=== PATIENT | male | born 1995 | race Caucasian/White ===

== ENCOUNTER 2016-06-11 12:09 | Emergency (ER) | payer BC ==
[2016-06-11 13:24] VITALS: BP 132/61
--- NOTE | 2016-06-11 14:20 | UC ---
Complaint Male HPI - HPI Summary HPI Summary: complaint of feeling a bump in his left testicle noticed it yesterday denies any pain, swelling, trauma to genitals denies dysuria, penile lesions or discharge denies fever no pain in testicles unles he squeezes lump. - History of Current Complaint Chief Complaint: UCGU Stated Complaint: PERSONAL Time Seen by Provider: 06/11/16 14:13 Hx Obtained From: Patient - Allergies/Home Medications Allergies/Adverse Reactions: Allergies Allergy/AdvReac Type Severity Reaction Status Date / Time No Known Allergies Allergy Verified 06/11/16 13:19 PMH/Surg Hx/FS Hx/Imm Hx Previously Healthy: Yes Endocrine History Of: Denies: Diabetes, Thyroid Disease, Hyperthyroidism, Hypothyroidism, Dyslipidemia Cardiovascular History Of: Denies: Cardiac Disorders, Hypertension, Pacemaker/ICD, Myocardial Infarction , Congestive Heart Failure, Atrial Fibrillation, Deep Vein Thrombosis, Bleeding Disorders Respiratory History Of: Denies: COPD, Asthma, Bronchitis, Pneumonia, Pulmonary Embolism GI/ History Of: Denies: Gastroesophageal Reflux, Ulcer, Gastrointestinal Bleed, Gall Bladder Disease, Kidney Stones, Diverticulitis, Renal Disease, Urosepsis Neurological History Of: Denies: TIA, CVA, Dementia, Seizures, Migraine Psychological History Of: Denies: Anxiety, Depression, Bipolar Disorder, Schizophrenia, Post Traumatic Stress Disorder Cancer History Of: Denies: Lung Cancer, Colorectal Cancer, Breast Cancer, Prostate Cancer, Cervical Cancer Other History Of: Negative For: HIV, Hepatitis B, Hepatitis C, Anticoagulant Therapy - Surgical History Surgical History: None - Family History Known Family History: Positive: Hypertension, Other Negative: Cardiac Disease, Diabetes - Social History Occupation: Student Alcohol Use: Occasionally Alcohol Amount: 10-20 beers Substance Use Type: None Substance Use Comment - Amount & Last Used: daily, last used 03/05/16 Smoking Status (MU): Never Smoked Tobacco - Immunization History Most Recent Influenza Vaccination: Not the 2016/2016 Season Review of Systems Constitutional: Negative Skin: Negative Eyes: Negative ENT: Negative Respiratory: Negative Cardiovascular: Negative Gastrointestinal: Negative Genitourinary: Other - lump in left testicle Motor: Negative Neurovascular: Negative Musculoskeletal: Negative Neurological: Negative Psychological: Negative All Other Systems Reviewed And Are Negative: Yes Physical Exam Triage Information Reviewed: Yes Appearance: No Pain Distress, Well-Nourished Vital Signs: Initial Vital Signs Temp 98.5 F 06/11/16 13:18 Pulse 54 06/11/16 13:18 Resp 16 06/11/16 13:18 BP 132/61 06/11/16 13:18 Pulse Ox 100 06/11/16 13:18 Vital Signs Reviewed: Yes Eyes: Positive: Conjunctiva Clear ENT: Positive: Pharynx normal, TMs normal. Negative: Nasal congestion Neck: Positive: No Lymphadenopathy Respiratory: Positive: Lungs clear, Normal breath sounds, No respiratory distress Cardiovascular: Positive: RRR, No Murmur Abdomen Description: Positive: Nontender, Soft Bowel Sounds: Positive: Present Musculoskeletal: Positive: No Edema Neurological: Positive: Alert Psychological Exam: Normal Skin Exam: Normal Skin: Positive: Other - exam- testicles- left testicle 1x2cm lump moveable in left testicle no hernias , no penile lesions, discharge no pain with examination Complaint Male Course/Dx - Course Course Of Treatment: exam completed. no emergent need for ultraosund d/t no pain. will refer to urology for further evaluation and treatment with instructions to go to ED if he gins to have any pain - Differential Dx/Diagnosis Differential Diagnosis/HQI/PQRI: Testicular Torsion, Other - testicular cancer inguinal hernia Provider Diagnoses: left testicluar lump Discharge - Discharge Plan Condition: Stable Disposition: HOME Patient Education Materials: Testicle Pain (ED) Referrals: No Primary Care Phys,NOPCP [Primary Care Provider] - Herson Zepeda MD [Medical Doctor] - Additional Instructions: please call urologist for further evaluation of your testicle if you have any testicular pain, fever difficulty urinating that increases you should go to the emergency room immediately
== END 2016-06-11 14:43 | disposition home or self-care (01) ==
LOC: UCCORT 12:09
DX: N50.9 Disorder of male genital organs, unspecified (principal)
CPT/HCPCS: 99211; G0463

== ENCOUNTER 2016-12-26 15:53 | Emergency (ER) | payer BC ==
[2016-12-26 16:13] VITALS: BP 117/90
[2016-12-26] MEDS ORDERED: Azithromycin TAB* 250 MG PO ONE (16:38)
[2016-12-26] MEDS ORDERED: cefTRIAXone VIAL(*) 250 MG VIAL IM ONE (16:40)
[2016-12-26] MEDS ORDERED: Lidocaine 1% MPF* 2 ML VIAL ONE (16:50)
--- NOTE | 2016-12-26 16:54 | UC ---
Complaint Male HPI - HPI Summary HPI Summary: pt presents with known exposure to chlamydia. pt requesting treatment and does not want any testing. Pt has prior history of chlamydia. - History of Current Complaint Chief Complaint: UCLowerExtremity Stated Complaint: RIGHT LEG PAIN Time Seen by Provider: 12/26/16 16:30 Hx Obtained From: Patient Severity Currently: None Associated Signs And Symptoms: Positive: Negative Prior STD Hx: chlamydia - Allergies/Home Medications Allergies/Adverse Reactions: Allergies Allergy/AdvReac Type Severity Reaction Status Date / Time No Known Allergies Allergy Verified 12/26/16 16:06 PMH/Surg Hx/FS Hx/Imm Hx Previously Healthy: Yes Other History Of: Negative For: HIV, Hepatitis B, Hepatitis C, Anticoagulant Therapy - Surgical History Surgical History: None - Family History Known Family History: Positive: Hypertension, Other Negative: Cardiac Disease, Diabetes - Social History Occupation: Unemployed Lives: With Family Alcohol Use: Weekly Alcohol Amount: 10 drinks per week Substance Use Type: None Substance Use Comment - Amount & Last Used: daily, last used 03/05/16 Smoking Status (MU): Never Smoked Tobacco Have You Smoked in the Last Year: No - Immunization History Most Recent Influenza Vaccination: NONE 2015 Most Recent Tetanus Shot: UTD Review of Systems Constitutional: Negative Skin: Negative Eyes: Negative ENT: Negative Respiratory: Negative Cardiovascular: Negative Gastrointestinal: Negative Genitourinary: Negative Motor: Negative Neurovascular: Negative Musculoskeletal: Negative Neurological: Negative Psychological: Negative All Other Systems Reviewed And Are Negative: Yes Physical Exam Triage Information Reviewed: Yes Appearance: Well-Appearing Vital Signs: Initial Vital Signs Temp 97.8 F 12/26/16 16:06 Pulse 72 12/26/16 16:06 Resp 16 12/26/16 16:06 BP 117/90 12/26/16 16:06 Pulse Ox 97 12/26/16 16:06 Vital Signs Reviewed: Yes Eye Exam: Normal ENT Exam: Normal Neck exam: Normal Respiratory: Positive: No respiratory distress Abdominal Exam: Other Abdomen Description: Positive: Nontender Musculoskeletal Exam: Normal Neurological Exam: Normal Psychological Exam: Normal Skin Exam: Normal Complaint Male Course/Dx - Differential Dx/Diagnosis Differential Diagnosis/HQI/PQRI: Other - confirmed STD exposure, chlamydia Provider Diagnoses: known STD exposure,. STD treatment Discharge - Discharge Plan Condition: Stable Disposition: HOME Patient Education Materials: Sexually Transmitted Diseases (ED), Safe Sex (ED) Referrals: No Primary Care Phys,NOPCP [Primary Care Provider] - If Needed
== END 2016-12-26 17:28 | disposition home or self-care (01) ==
LOC: UCCORT 15:53
DX: Z20.2 Contact with and (suspected) exposure to infections with a predominantly sexual mode of transmission (principal)
CPT/HCPCS: 96372; 99212; A9270-GY; G0463; J0696

== ENCOUNTER 2017-01-21 11:44 | Emergency (ER) | payer BC ==
--- NOTE | 2017-01-21 11:54 | UC ---
Complaint Male HPI - HPI Summary HPI Summary: 21 YEAR OLD MALE PRESENTS WITH ABDOMINAL PAIN AND 13 POUND WEIGHT GAIN. I AM VERY CONCERNED ABOUT FECAL IMPACTION AND WILL SEND HIM TO THE ED. - History of Current Complaint Stated Complaint: ABD/PELVIC PAIN 4 DAYS Time Seen by Provider: 01/21/17 11:53 Hx Obtained From: Patient Onset/Duration: Sudden Onset Timing: Constant Severity Initially: Moderate Severity Currently: Moderate Pain Scale Used: 0-10 Numeric - 5 Location: None Character: Sharp, Constant Pressure Associated Signs And Symptoms: Positive: Negative - Allergies/Home Medications Allergies/Adverse Reactions: Allergies Allergy/AdvReac Type Severity Reaction Status Date / Time No Known Allergies Allergy Verified 01/21/17 11:48 PMH/Surg Hx/FS Hx/Imm Hx Previously Healthy: Yes Other History Of: Negative For: HIV, Hepatitis B, Hepatitis C, Anticoagulant Therapy - Surgical History Surgical History: None - Family History Known Family History: Positive: Hypertension, Other Negative: Cardiac Disease, Diabetes - Social History Alcohol Use: Weekly Alcohol Amount: 10 drinks per week Substance Use Type: None Substance Use Comment - Amount & Last Used: daily, last used 03/05/16 Smoking Status (MU): Never Smoked Tobacco Have You Smoked in the Last Year: No - Immunization History Most Recent Influenza Vaccination: NONE 2015 Most Recent Tetanus Shot: UTD Review of Systems Constitutional: Negative Skin: Negative Eyes: Negative ENT: Negative Respiratory: Negative Cardiovascular: Negative Gastrointestinal: Abdominal Pain Genitourinary: Negative Motor: Negative Neurovascular: Negative Musculoskeletal: Negative Neurological: Negative Psychological: Negative All Other Systems Reviewed And Are Negative: Yes Physical Exam Triage Information Reviewed: Yes Vital Signs Reviewed: Yes Eye Exam: Normal ENT Exam: Normal Dental Exam: Normal Neck exam: Normal Neck: Positive: 1 Respiratory Exam: Normal Cardiovascular Exam: Normal Abdomen Description: Positive: Distended Musculoskeletal Exam: Normal Neurological Exam: Normal Psychological Exam: Normal Skin Exam: Normal Complaint Male Course/Dx - Differential Dx/Diagnosis Provider Diagnoses: CONSTIPATION Discharge - Discharge Plan Condition: Stable Disposition: HOME Patient Education Materials: Constipation (ED) Referrals: No Primary Care Phys,NOPCP [Primary Care Provider] - Additional Instructions: PLEASE GO TO ER FOR SEVERE FECAL IMPACTION.
[2017-01-21 11:55] VITALS: BP 124/67
== END 2017-01-21 12:16 | disposition home or self-care (01) ==
LOC: UCCORT 11:44
DX: K59.00 Constipation, unspecified (principal)
CPT/HCPCS: 99211; G0463

== ENCOUNTER 2017-01-21 13:09 | Emergency (ER) | payer BC ==
--- NOTE | 2017-01-21 17:29 | RAD ---
Indication: Abdominal pain. Flat and upright views of the abdomen demonstrates no free air. Stool is noted throughout the colon. Air distended small bowel is noted in the nonspecific pattern in the left upper quadrant. IMPRESSION: Nonspecific bowel gas pattern without evidence of obstruction.
[2017-01-21 18:59] LABS: Hematocrit 43 % (42-52); Hemoglobin 14.5 g/dl (14.0-18.0); Mean Corpuscular HGB Conc 34 g/dl (31-36); Mean Corpuscular Hemoglobin 30 pg (27-31); Mean Corpuscular Volume 88 fL (80-94); Mean Platelet Volume 9 um3 (7.4-10.4); Red Blood Count 4.85 10^6/ul (4.0-5.4); Red Cell Distribution Width 14 % (10.5-15); White Blood Count 6.8 10^3/ul (3.5-10.8)
--- NOTE | 2017-01-21 19:05 | ED ---
Yasmany Condon Benjamin, scribed for Kevin Joseph MD on 01/21/17 at 1620 . GI/ HPI - HPI Summary HPI Summary: 21 y/o male presents to ED c/o 1 episode of diarrhea six days ago. Since then the pt has had small bowel movements but has been otherwise constipated. He states it is harder to push when he tries to move his bowels. Associated sx: intermittent cramps in the suprapubic region and the bilateral flanks. Pt also c /o testicular pain aggravated by sitting and laying down for the past few months. Pt returned from the [facility] one week ago. Pt gained 13 lbs in the past week. - History of Current Complaint Chief Complaint: EDGeneral Time Seen by Provider: 01/21/17 16:09 Stated Complaint: ABD BLOATING/CONSTIPATION Hx Obtained From: Patient Onset/Duration: Started Days Ago Timing: Intermittent Pain Intensity: 0 Additional Locations for Males: Testicles Associated Signs and Symptoms: Positive: Constipation, Diarrhea, Abdominal Pain - Cramps radiating into the flanks, Other: - Weight gain - Allergy/Home Medications Allergies/Adverse Reactions: Allergies Allergy/AdvReac Type Severity Reaction Status Date / Time No Known Allergies Allergy Verified 01/21/17 11:48 PMH/Surg Hx/FS Hx/Imm Hx Previously Healthy: No Endocrine/Hematology History: Denies: Hx Anticoagulant Therapy, Hx Diabetes, Hx Thyroid Disease Cardiovascular History: Denies: Hx Congestive Heart Failure, Hx Deep Vein Thrombosis, Hx Hypertension , Hx Myocardial Infarction, Hx Pacemaker/ICD Respiratory History: Denies: Hx Asthma, Hx Chronic Obstructive Pulmonary Disease (COPD), Hx Lung Cancer, Hx Pneumonia, Hx Pulmonary Embolism GI History: Denies: Hx Gall Bladder Disease, Hx Gastrointestinal Bleed, Hx Ulcer, Hx Urosepsis History: Denies: Hx Kidney Stones, Hx Renal Disease Neurological History: Denies: Hx Dementia, Hx Migraine, Hx Seizures, Hx Transient Ischemic Attacks (TIA) Psychiatric History: Denies: Hx Anxiety, Hx Depression, Hx Schizophrenia, Hx Bipolar Disorder Infectious Disease History: No Infectious Disease History: Denies: Hx Clostridium Difficile, Hx Hepatitis, Hx Human Immunodeficiency Virus (HIV), Hx of Known/Suspected MRSA, Hx Shingles, Hx Tuberculosis, Hx Known/ Suspected VRE, Hx Known/Suspected VRSA, History Other Infectious Disease, Traveled Outside the [place] in Last 30 Days - Family History Known Family History: Positive: Hypertension, Other Negative: Cardiac Disease, Diabetes - Social History Alcohol Use: Weekly Alcohol Amount: 10 drinks per week Hx Substance Use: No Substance Use Type: Reports: None Substance Use Comment - Amount & Last Used: daily, last used 03/05/16 Hx Tobacco Use: No Smoking Status (MU): Never Smoked Tobacco Have You Smoked in the Last Year: No Review of Systems Constitutional: Negative Eyes: Negative ENT: Negative Cardiovascular: Negative Respiratory: Negative Positive: Abdominal Pain, Diarrhea, Other - Constipation. Weight gain - 13 lbs in the past week Genitourinary: Other - Testicular pain Musculoskeletal: Negative Skin: Negative Neurological: Negative Psychological: Normal All Other Systems Reviewed And Are Negative: Yes Physical Exam Triage Information Reviewed: Yes Vital Signs On Initial Exam: Initial Vitals Temp Pulse Resp BP Pulse Ox 98.1 F 57 20 131/55 100 01/21/17 13:46 01/21/17 13:46 01/21/17 13:46 01/21/17 13:46 01/21/17 13:46 Vital Signs Reviewed: Yes Appearance: Positive: Well-Appearing, No Pain Distress Skin: Positive: Warm, Skin Color Reflects Adequate Perfusion, Dry Head/Face: Positive: Normal Head/Face Inspection Eyes: Positive: Normal ENT: Positive: Normal ENT inspection Neck: Positive: Supple, Nontender Respiratory/Lung Sounds: Positive: Clear to Auscultation, Breath Sounds Present Cardiovascular: Positive: RRR Abdomen Description: Positive: Nontender, Soft Bowel Sounds: Positive: Present Musculoskeletal: Positive: Normal Neurological: Positive: Normal Psychiatric: Positive: Normal - Alyce Coma Scale Coma Scale Total: 15 Diagnostics - Vital Signs Vital Signs Temp Pulse Resp BP Pulse Ox 01/21/17 16:08 59 99 01/21/17 16:07 128/65 01/21/17 16:03 98.7 F 50 16 128/65 100 01/21/17 13:46 98.1 F 57 20 131/55 100 - Laboratory Lab Results: Lab Results 01/21/17 Range/Units 18:40 WBC 6.8 (3.5-10.8) 10^3/ul RBC 4.85 (4.0-5.4) 10^6/ul Hgb 14.5 (14.0-18.0) g/dl Hct 43 (42-52) % MCV 88 (80-94) fL MCH 30 (27-31) pg MCHC 34 (31-36) g/dl RDW 14 (10.5-15) % Plt Count 197 (150-450) 10^3/ul MPV 9 (7.4-10.4) um3 Neut % (Auto) 66.9 (38-83) % Lymph % (Auto) 24.7 L (25-47) % [place] % (Auto) 6.6 (1-9) % Eos % (Auto) 1.2 (0-6) % Baso % (Auto) 0.6 (0-2) % Absolute Neuts (auto) 4.6 (1.5-7.7) 10^3/ul Absolute Lymphs (auto) 1.7 (1.0-4.8) 10^3/ul Absolute Monos (auto) 0.4 (0-0.8) 10^3/ul Absolute Eos (auto) 0.1 (0-0.6) 10^3/ul Absolute Basos (auto) 0 (0-0.2) 10^3/ul Absolute Nucleated RBC 0 10^3/ul Nucleated RBC % 0 Result Diagrams: 01/21/17 18:40 Lab Statement: Any lab studies that have been ordered have been reviewed, and results considered in the medical decision making process. - Radiology ABD XR Xray Interpretation: No Acute Changes - Nonspecific bowel gas pattern without evidence of obstruction. ED PHYSICIAN AGREEABLE Radiology Interpretation Completed By: Radiologist Re-Evaluation - Re-Evaluation 1 Re-Evaluation Time: 17:33 Comment: Discussed ABD XR results GIGU Course/Dx - Course Course Of Treatment: Mr. Sanchez has been C/O low abdominal pain for a week or so and an unexplained weight gain. He thought he was constipated but a KUB is relatively unremarkable. He is getting labs and CT. Assessment/Plan: SIGN OUT TO DR. KEENE AT SHIFT CHANGE. PENDING CT RESULTS - Diagnoses Provider Diagnoses: Abdominal pain Discharge - Discharge Plan Condition: Stable Disposition: OTHER Discharge Disposition Comment: SIGN OUT TO DR. KEENE AT SHIFT CHANGE. PENDING CT RESULTS Referrals: No Primary Care Phys,NOPCP [Primary Care Provider] - The documentation as recorded by the Yasmany centeno Benjamin accurately reflects the service I personally performed and the decisions made by , Kevin Joseph MD.
[2017-01-21 19:09] LABS: ALT 18 U/L (7-52); AST 12 U/L (13-39); Albumin 4.5 g/dL (3.2-5.2); Alkaline Phosphatase 54 U/L (34-104); Blood Urea Nitrogen 12 mg/dL (6-24); C Reactive Protein < 1.00 mg/L (< 5.00); CO2 Carbon Dioxide 28 mmol/L (22-32); Calcium 9.5 mg/dL (8.6-10.3); Chloride 106 mmol/L (101-111); EGFR African American 141.7 (>60); EGFR Non-African American 110.2 (>60); Globulin 2.2 g/dL (2-4); Glucose 99 mg/dL (70-100); Lipase 18 U/L (11.0-82.0); Sodium 134 mmol/L (133-145); Total Protein 6.7 g/dL (6.4-8.9)
[2017-01-21] MEDS ORDERED: Iohexol 300* (CONTRAST) 10 ML SDV IV ONE (19:13)
--- NOTE | 2017-01-21 20:30 | RAD ---
Indication: Lower abdominal pain. Contrast: Administered 127.1 ml of OMNIPAQUE 300 mg/ml CT of the abdomen and pelvis was performed after oral and IV contrast administration. Coronal and sagittal reconstructed images were obtained. Lung bases demonstrate no pleural fluid, nodules or masses. Heart is of normal size without evidence of pericardial effusion. Liver is normal in size. No focal lesions or intrahepatic ductal dilatation is noted. The gallbladder demonstrates no calcified gallstones. No pericholecystic fluid or wall thickening is noted. The common duct is not dilated. The pancreas demonstrates no mass or pancreatic duct dilatation. The spleen is normal in size. No adrenal masses are noted. The kidneys demonstrate symmetric nephrograms without focal lesions. No retroperitoneal adenopathy is noted. No dilated loops of bowel are noted. No retroperitoneal lymphadenopathy is noted. Aorta and inferior vena cava are unremarkable. CT of the pelvis demonstrates no dilated small bowel. The urinary bladder is unremarkable. The colon is filled with contrast. No hernias are noted. No free fluid is identified. No hernias are noted. IMPRESSION: No abnormal masses or fluid collections are noted. There is likely hepatic steatosis. No obstructive uropathy is noted.
[2017-01-21 20:38] LABS: Urine Bilirubin Negative (Negative); Urine Glucose Negative (Negative); Urine Nitrite Negative (Negative)
--- NOTE | 2017-01-21 21:17 | ED ---
Luis Armando Condon Rebecca, scribed for Deon Cordova on 01/21/17 at 2057 . Progress - Progress Note Progress Note: Pt was signed out from Dr. Joseph at 1900, pending disposition, awaiting CT Abd/ Pel results. - Results/Orders Results/Orders: CT Abd/Pel as read by radiologist reveals: No abnormal masses or fluid collections are noted. There is likely hepatic steatosis. No obstructive uropathy is noted. ED physician reviewed this radiology report and agrees. Re-Evaluation - Re-Evaluation 1 Re-Evaluation Time: 20:55 Comment: Discussed CT results with the pt. Course/Dx - Course Course Of Treatment: Pt was signed out from Dr. Joseph, pending disposition, awaiting CT Abd/Pel. CT Abd/Pel reveals: No abnormal masses or fluid collections are noted. There is likely hepatic steatosis. No obstructive uropathy is noted." He is stable and will be D/C to home with Dx of abdominal pain with Rx for Dulcolax and a follow up with his PCP. He understands and agrees. Elevated BP noted and advised to f/u with PCP. - Diagnoses Provider Diagnoses: Abdominal pain The documentation as recorded by the Luis Armando centeno Rebecca accurately reflects the service I personally performed and the decisions made by , Deon Cordova.
[2017-01-21 21:23] VITALS: BP 128/84
== END 2017-01-21 21:21 ==
LOC: ED 13:09
DX: R10.30 Lower abdominal pain, unspecified (principal); K59.00 Constipation, unspecified; R19.7 Diarrhea, unspecified; R63.5 Abnormal weight gain
CPT/HCPCS: 36415; 74000; 74177; 80053; 81003; 83605; 83690; 85025; 86140; 99283; Q9967

== ENCOUNTER 2017-05-01 16:40 | Emergency (ER) | payer BC ==
[2017-05-01 17:02] VITALS: BP 141/69
--- NOTE | 2017-05-01 17:34 | ED ---
Throat Pain/Nasal Congestion - HPI Summary HPI Summary: 21 yr old male with complaint of small bump on left nasal septum near posterior nasal opening. He has no pain,drainage, discomfort. He is wondering what the bump is. He has only had it for two days. denies any trauma. he used cocaine a week ago. he smokes marajuana on occasion. - History of Current Complaint Chief Complaint: UCGeneralIllness Time Seen by Provider: 05/01/17 17:16 - Allergies/Home Medications Allergies/Adverse Reactions: Allergies Allergy/AdvReac Type Severity Reaction Status Date / Time No Known Allergies Allergy Verified 05/01/17 16:56 Home Medications: Home Medications NK [No Home Medications Reported] 05/01/17 [History Confirmed 05/01/17] PMH/Surg Hx/FS Hx/Imm Hx Previously Healthy: Yes Endocrine/Hematology History: Denies: Hx Anticoagulant Therapy, Hx Diabetes, Hx Thyroid Disease Cardiovascular History: Denies: Hx Congestive Heart Failure, Hx Deep Vein Thrombosis, Hx Hypertension , Hx Myocardial Infarction, Hx Pacemaker/ICD Respiratory History: Denies: Hx Asthma, Hx Chronic Obstructive Pulmonary Disease (COPD), Hx Lung Cancer, Hx Pneumonia, Hx Pulmonary Embolism GI History: Denies: Hx Gall Bladder Disease, Hx Gastrointestinal Bleed, Hx Ulcer, Hx Urosepsis History: Denies: Hx Kidney Stones, Hx Renal Disease Neurological History: Denies: Hx Dementia, Hx Migraine, Hx Seizures, Hx Transient Ischemic Attacks (TIA) Psychiatric History: Denies: Hx Anxiety, Hx Depression, Hx Schizophrenia, Hx Bipolar Disorder - Surgical History Hx Anesthesia Reactions: No Infectious Disease History: No Infectious Disease History: Denies: Hx Clostridium Difficile, Hx Hepatitis, Hx Human Immunodeficiency Virus (HIV), Hx of Known/Suspected MRSA, Hx Shingles, Hx Tuberculosis, Hx Known/ Suspected VRE, Hx Known/Suspected VRSA, History Other Infectious Disease, Traveled Outside the [place] in Last 30 Days - Family History Known Family History: Positive: Hypertension, Other Negative: Cardiac Disease, Diabetes - Social History Occupation: Student Alcohol Use: Weekly Alcohol Amount: 10 drinks per week Hx Substance Use: No Substance Use Type: Reports: None Substance Use Comment - Amount & Last Used: daily, last used 03/05/16 Hx Tobacco Use: No Smoking Status (MU): Never Smoked Tobacco Have You Smoked in the Last Year: No Review of Systems Positive: Other - bump nasal septum All Other Systems Reviewed And Are Negative: Yes Physical Exam Triage Information Reviewed: Yes Vital Signs On Initial Exam: Initial Vitals Temp Pulse Resp BP Pulse Ox 98.1 F 70 16 141/69 99 05/01/17 16:57 05/01/17 16:57 05/01/17 16:57 05/01/17 16:57 05/01/17 16:57 Vital Signs Reviewed: Yes Appearance: Positive: Well-Appearing, No Pain Distress Skin: Positive: Warm Head/Face: Positive: Normal Head/Face Inspection Eyes: Positive: EOMI ENT: Positive: Pharynx normal, Other - very small irregularity and prominence of the inferior nasal septum where it meets the skin of the left anterior nasal opening. No obvious mass, no tenderness.. Negative: Nasal congestion, Nasal drainage Neck: Positive: Supple, Nontender Respiratory/Lung Sounds: Positive: Clear to Auscultation, Breath Sounds Present Cardiovascular: Positive: RRR. Negative: Murmur Abdomen Description: Positive: Nontender Musculoskeletal: Positive: Normal, Strength/ROM Intact Neurological: Positive: Sensory/Motor Intact, Alert, Oriented to Person Place, Time, CN Intact II-III Psychiatric: Positive: Normal - [place] Coma Scale Best Eye Response: 4 - Spontaneous Best Motor Response: 6 - Obeys Commands Best Verbal Response: 5 - Oriented Diagnostics - Vital Signs Vital Signs Temp Pulse Resp BP Pulse Ox 05/01/17 16:57 98.1 F 70 16 141/69 99 - Laboratory Lab Statement: Any lab studies that have been ordered have been reviewed, and results considered in the medical decision making process. EENT Course/Dx - Course Course Of Treatment: 21 yr old male with nasal septum irregularity. He is referred to ENT to further diagnose. - Diagnoses Provider Diagnoses: left nasal septum irregularity, Hypertension Discharge - Discharge Plan Condition: Good Disposition: HOME Patient Education Materials: Hypertension (ED) Referrals: No Primary Care Phys,NOPCP [Primary Care Provider] - Eliel Zaldivar MD [Medical Doctor] - [facility] [facility] [place] [facility] [place]] - 3 Days Additional Instructions: Be sure to follow up with the ENT specialist in the next week for further evaluation of your nasal septum. Go to the ER for any worsening symptoms or concerns.
== END 2017-05-01 17:39 | disposition home or self-care (01) ==
LOC: UCCORT 16:40
DX: J34.2 Deviated nasal septum (principal); I10 Essential (primary) hypertension; F14.90 Cocaine use, unspecified, uncomplicated; F12.90 Cannabis use, unspecified, uncomplicated
CPT/HCPCS: 99211; G0463

== ENCOUNTER 2017-11-04 13:03 | Emergency (ER) | payer BC ==
[2017-11-04 13:36] VITALS: BP 129/67
[2017-11-04] MEDS ORDERED: DOXYcycline CAP(*) 100 MG PO ONE (14:02)
--- NOTE | 2017-11-04 14:09 | ED ---
Skin Complaint - HPI Summary HPI Summary: 22 yr old male with the complaint of tick bite to the right medial thigh. The patient removed the tick alive and has brought it in not engorged. Tick on for possibly a day. He has no other complaints. - History of Current Complaint Chief Complaint: [facility] Time Seen by Provider: 11/04/17 13:24 Stated Complaint: TICK BITE Pain Intensity: 4 - Allergy/Home Medications Allergies/Adverse Reactions: Allergies Allergy/AdvReac Type Severity Reaction Status Date / Time No Known Allergies Allergy Verified 11/04/17 13:36 PMH/Surg Hx/FS Hx/Imm Hx Endocrine/Hematology History: Denies: Hx Anticoagulant Therapy, Hx Diabetes, Hx Thyroid Disease Cardiovascular History: Denies: Hx Congestive Heart Failure, Hx Deep Vein Thrombosis, Hx Hypertension , Hx Myocardial Infarction, Hx Pacemaker/ICD Respiratory History: Denies: Hx Asthma, Hx Chronic Obstructive Pulmonary Disease (COPD), Hx Lung Cancer, Hx Pneumonia, Hx Pulmonary Embolism GI History: Denies: Hx Gall Bladder Disease, Hx Gastrointestinal Bleed, Hx Ulcer, Hx Urosepsis History: Denies: Hx Kidney Stones, Hx Renal Disease Neurological History: Denies: Hx Dementia, Hx Migraine, Hx Seizures, Hx Transient Ischemic Attacks (TIA) Psychiatric History: Denies: Hx Anxiety, Hx Depression, Hx Schizophrenia, Hx Bipolar Disorder - Surgical History Hx Anesthesia Reactions: No Infectious Disease History: No Infectious Disease History: Denies: Hx Clostridium Difficile, Hx Hepatitis, Hx Human Immunodeficiency Virus (HIV), Hx of Known/Suspected MRSA, Hx Shingles, Hx Tuberculosis, Hx Known/ Suspected VRE, Hx Known/Suspected VRSA, History Other Infectious Disease, Traveled Outside the [place] in Last 30 Days - Family History Known Family History: Positive: Hypertension, Other Negative: Cardiac Disease, Diabetes - Social History Alcohol Use: Weekly Alcohol Amount: 10 drinks per week Hx Substance Use: No Substance Use Type: Reports: None Substance Use Comment - Amount & Last Used: daily, last used 03/05/16 Hx Tobacco Use: No Smoking Status (MU): Never Smoked Tobacco Have You Smoked in the Last Year: No Review of Systems Positive: Other - tick bite All Other Systems Reviewed And Are Negative: Yes Physical Exam Triage Information Reviewed: Yes Vital Signs On Initial Exam: Initial Vitals Temp Pulse Resp BP Pulse Ox 97.8 F 57 14 129/67 98 11/04/17 13:24 11/04/17 13:24 11/04/17 13:24 11/04/17 13:24 11/04/17 13:24 Vital Signs Reviewed: Yes Appearance: Positive: Well-Appearing, No Pain Distress Skin: Positive: Other - small localized reaction to the tick bite medial thigh. Head/Face: Positive: Normal Head/Face Inspection Neck: Positive: Nontender Respiratory/Lung Sounds: Positive: Clear to Auscultation, Breath Sounds Present Cardiovascular: Positive: RRR. Negative: Murmur Abdomen Description: Negative: Distended Musculoskeletal: Positive: Strength/ROM Intact Neurological: Positive: Sensory/Motor Intact, Alert, Oriented to Person Place, Time, CN Intact II-III Psychiatric: Positive: Normal - Alyce Coma Scale Best Eye Response: 4 - Spontaneous Best Motor Response: 6 - Obeys Commands Best Verbal Response: 5 - Oriented Coma Scale Total: 15 Diagnostics - Vital Signs Vital Signs Temp Pulse Resp BP Pulse Ox 11/04/17 13:24 97.8 F 57 14 129/67 98 - Laboratory Lab Statement: Any lab studies that have been ordered have been reviewed, and results considered in the medical decision making process. Course/Dx - Course Course Of Treatment: 22 yr old with tick bite. Prophylax with doxy. 200 mg once. - Diagnoses Provider Diagnoses: Tick bite Discharge - Sign-Out/Discharge Documenting (check all that apply): Discharge/Admit/Transfer - Discharge Plan Condition: Good Disposition: HOME Patient Education Materials: Tick Bite (ED) Referrals: [facility] [Outside] - 2 Days No Primary Care Phys,NOPCP [Primary Care Provider] - - Billing Disposition and Condition Condition: GOOD Disposition: Home
== END 2017-11-04 14:15 | disposition home or self-care (01) ==
LOC: UCCORT 13:03
DX: S70.361A Insect bite (nonvenomous), right thigh, initial encounter (principal); W57.XXXA Bitten or stung by nonvenomous insect and other nonvenomous arthropods, initial encounter; Y92.9 Unspecified place or not applicable
CPT/HCPCS: 99212; A9270-GY; G0463

== ENCOUNTER → 2018-01-29 13:49 | Emergency (ER) | payer SELFPAY | END | disposition home or self-care (01) | LOC: OHCORT 13:49 | DX: Z02.5 Encounter for examination for participation in sport (principal) ==

== ENCOUNTER 2018-01-29 14:32 | Emergency (ER) | payer SELFPAY ==
[2018-01-29 14:42] VITALS: BP 145/73
[2018-01-29] MEDS ORDERED: Azithromycin TAB* 250 MG PO ONE (14:47)
--- NOTE | 2018-01-29 14:47 | ED ---
GI/ HPI - HPI Summary HPI Summary: 22 yr male with the complaint of his girlfriend told him she has chlamydia. The patient has no symptoms. no dysuria, no discharge, no testicular or scrotal pain. No fever or chills. No other complaints. - History of Current Complaint Time Seen by Provider: 01/29/18 14:35 Stated Complaint: PERSONAL - Allergy/Home Medications Allergies/Adverse Reactions: Allergies Allergy/AdvReac Type Severity Reaction Status Date / Time No Known Allergies Allergy Verified 11/04/17 13:36 PMH/Surg Hx/FS Hx/Imm Hx Endocrine/Hematology History: Denies: Hx Anticoagulant Therapy, Hx Diabetes, Hx Thyroid Disease Cardiovascular History: Denies: Hx Congestive Heart Failure, Hx Deep Vein Thrombosis, Hx Hypertension , Hx Myocardial Infarction, Hx Pacemaker/ICD Respiratory History: Denies: Hx Asthma, Hx Chronic Obstructive Pulmonary Disease (COPD), Hx Lung Cancer, Hx Pneumonia, Hx Pulmonary Embolism GI History: Denies: Hx Gall Bladder Disease, Hx Gastrointestinal Bleed, Hx Ulcer, Hx Urosepsis History: Denies: Hx Kidney Stones, Hx Renal Disease Neurological History: Denies: Hx Dementia, Hx Migraine, Hx Seizures, Hx Transient Ischemic Attacks (TIA) Psychiatric History: Denies: Hx Anxiety, Hx Depression, Hx Schizophrenia, Hx Bipolar Disorder - Surgical History Hx Anesthesia Reactions: No Infectious Disease History: Denies: Hx Clostridium Difficile, Hx Hepatitis, Hx Human Immunodeficiency Virus (HIV), Hx of Known/Suspected MRSA, Hx Shingles, Hx Tuberculosis, Hx Known/ Suspected VRE, Hx Known/Suspected VRSA, History Other Infectious Disease - Family History Known Family History: Positive: Hypertension, Other Negative: Cardiac Disease, Diabetes - Social History Occupation: Student Alcohol Use: Weekly Alcohol Amount: 10 drinks per week Hx Substance Use: No Substance Use Type: Reports: None Substance Use Comment - Amount & Last Used: daily, last used 03/05/16 Hx Tobacco Use: No Smoking Status (MU): Never Smoked Tobacco Have You Smoked in the Last Year: No Review of Systems Constitutional: Negative Positive: no symptoms reported All Other Systems Reviewed And Are Negative: Yes Physical Exam Triage Information Reviewed: Yes Vital Signs Reviewed: Yes Appearance: Positive: Well-Appearing, No Pain Distress Skin: Positive: Warm, Skin Color Reflects Adequate Perfusion Head/Face: Positive: Normal Head/Face Inspection Eyes: Positive: EOMI ENT: Positive: Normal ENT inspection Neck: Positive: Nontender Respiratory/Lung Sounds: Positive: Clear to Auscultation, Breath Sounds Present Cardiovascular: Positive: RRR. Negative: Murmur Abdomen Description: Positive: Nontender. Negative: CVA Tenderness (R), CVA Tenderness (L) Male Genital Exam: Positive: Normal Genitalia. Negative: Hernia Mass, Inguinal Tenderness, Scrotum Tenderness (R), Scrotum Tenderness (L), Testicular Tenderness (R), Testicular Tenderness (L), Urethral Discharge Musculoskeletal: Positive: Strength/ROM Intact Neurological: Positive: Sensory/Motor Intact, Alert, Oriented to Person Place, Time, CN Intact II-III, Normal Gait, Speech Normal Psychiatric: Positive: Normal - Alyce Coma Scale Best Eye Response: 4 - Spontaneous Best Motor Response: 6 - Obeys Commands Best Verbal Response: 5 - Oriented Coma Scale Total: 15 GIGU Course/Dx - Course Course Of Treatment: 22 yr old with possible exposure to chlamydia, but he is not symptomatic. He refuses all testing to be done, refuses HIV, syphillis and GC testing, and he only wants to be treated for chlamydia. - Diagnoses Provider Diagnoses: Exposure to STD Discharge - Sign-Out/Discharge Documenting (check all that apply): Patient Departure All imaging exams completed and their final reports reviewed: No Studies - Discharge Plan Condition: Stable Disposition: HOME Patient Education Materials: Chlamydia (ED), Sexually Transmitted Diseases (ED) Referrals: No Primary Care Phys,NOPCP [Primary Care Provider] - [facility] [Outside] - 5 Days - Billing Disposition and Condition Condition: STABLE Disposition: Home
== END 2018-01-29 15:00 | disposition home or self-care (01) ==
LOC: UCCORT 14:32
DX: Z20.2 Contact with and (suspected) exposure to infections with a predominantly sexual mode of transmission (principal)
CPT/HCPCS: 99211; A9270-GY; G0463